=== PATIENT | female | born 1935 | race Caucasian/White ===

== ENCOUNTER 2024-07-18 10:58 | Emergency (ER) | payer BC, OTHER, SELFPAY ==
[2024-07-18 11:04] VITALS: BP 149/70
--- NOTE | 2024-07-18 12:15 | ED.GENMED ---
History of Present Illness
General
Chief Complaint: Fall
Time Seen by Provider: 07/18/24 11:18
History of Present Illness
History of Present Illness:
89-year-old female presents after a fall that occurred this morning while walking up the steps. She denies a head injury. Obvious deformity and swelling to the left upper arm. Does not take blood thinners
Review of Systems
Review of Systems
Allergies reviewed?: Yes
All Other Systems: ROS reviewed and negative except as documented in HPI and ROS
Phy Exam
Physical Exam
Physical Exam:
GEN: Well appearing, NAD, WDWN
HEENT: Oral mucosa moist, no scleral icterus
Cardiac: Regular rate
Lung: No respiratory distress, no tachypnea
MSK: marked swelling with ecchymosis to the left anterior shoulder, left radial pulse and tactile sensation is intact
Skin: Good color, no pallor or jaundice, no rashes
Neuro: AO x3, moves all extremities freely
Psych: Calm, cooperative
Course
Orders/Labs/Results
Orders:
Orders
07/18/24 11:09
CR Humerus - Left Min 2 Views* Urgent
Comment:
Reason For Exam: Injury
Vital Signs
Initial and Last Documented VS:
Initial Vital Signs
Temp Pulse Resp BP Pulse Ox
97.7 F 77 16 149/70 96
07/18/24 11:04 07/18/24 11:04 07/18/24 11:04 07/18/24 11:04 07/18/24 11:04
Last Documented Vital Signs
Temp Pulse Resp BP Pulse Ox
97.7 F 77 16 149/70 96
07/18/24 11:04 07/18/24 11:04 07/18/24 11:04 07/18/24 11:04 07/18/24 11:04
MDM/Problems Addressed
MDM/Problems Addressed:
Imaging reveals a displaced humeral neck fracture. Placed in shoulder immobilizer and will refer to orthopedics as an outpatient, no clinical evidence of vascular injury
*Critical Care Note
Total Time (30-74mins, 75-104mins- exclusive of procedures): Not Applicable
ED Attending Note
-
Portions of this chart may have been created with voice recognition software.� Occasional wrong word or��sound alike� substitutions may have occurred due to the inherent limitations of voice recognition software.
Discharge Plan
Departure
Patient Disposition: Home (Routine Discharge)
Date of Disposition: 07/18/24
Time of Disposition: 12:15
Patient with high blood pressure during this ER visit?: No
Discharge Problem:
Closed fracture of neck of left humerus
Instructions: Upper Arm Fracture ED
Referrals:
Dilip Olmedo MD [Active] -
Eleazar Garcia DO [Family Provider] -
Activity Restrictions/Additional Instructions:
Tylenol 650 mg and ibuprofen 400 mg taken together every 6-8 hours for symptom control
Ice the shoulder often to reduce swelling
Remove the sling briefly for about 10 to 15 minutes each day to allow the left elbow to stretch
Follow-up with orthopedics as soon as possible
Interventions
Interventions:
*Risk Screen - Suicide Last Done: 07/18/24 11:33
*General Assessment Last Done: 07/18/24 11:33
*Neglect/Abuse Screening Last Done: 07/18/24 11:33
*ED- Fall Risk Assessment Last Done: 07/18/24 11:33
*ED COVID-19 Vaccine History Last Done: 07/18/24 11:33
*Nursing Disposition Last Done: 07/18/24 12:21
ED-Musculoskeletal Assessment Last Done: 07/18/24 11:33
ED- Neurological Assessment Last Done: 07/18/24 11:33
ED-Skin Assessment Last Done: 07/18/24 11:33
Discharge Date and Time
Discharge Date/Time: 07/18/24 12:21
Print Language: SAUDI ARABIAN
== END 2024-07-18 12:21 | disposition home or self-care (01) ==
LOC: EMR 10:58
PROVIDERS: EMERGENCY PHYSICIAN Emergency Medicine; FAMILY PHYSICIAN Family Medicine
DX: S42.212A Unspecified displaced fracture of surgical neck of left humerus, initial encounter for closed fracture (principal); S40.012A Contusion of left shoulder, initial encounter; W10.9XXA Fall (on) (from) unspecified stairs and steps, initial encounter
CPT/HCPCS: 99283; 73060